=== PATIENT | male | born 1955 | race Caucasian/White ===

== ENCOUNTER 2017-11-04 16:35 | Inpatient (IN) ==
[2017-11-04] MEDS ORDERED: Morphine Inj 4 MG/ML Vial ONE (17:35)
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
[2017-11-04] MEDS ORDERED: Morphine Inj 4 MG/ML Vial IV.PUSH PRN (18:10)
[2017-11-04] MEDS ORDERED: Ketorolac Inj 30 MG/ML (IVP) Vial IV.PUSH PRN (18:10)
[2017-11-04] MEDS: Sod Chloride 0.9% Inj 1,000 ML IV.CONT SCH (18:32)
--- NOTE | 2017-11-04 18:32 | XR ---
EXAM DATE: 11/04/2017 6:11 PM EDT AGE/SEX: 62 years / Male INDICATIONS: Status post left sided chest tube placement. CLINICAL DATA: This is the patient's initial encounter. Patient reports that signs and symptoms have been present for 1 day and indicates a pain score of Nonresponsive. MEDICAL/SURGICAL HISTORY: Non-responsive. Non-responsive. COMPARISON: No prior exams available for comparison. FINDINGS: There are patchy infiltrates in the left lower lung with loss of delineation of portions of the left hemidiaphragm. There is an indwelling chest catheter with the pigtail tip projected over the costophr enic angle. The right lung is clear. The heart is normal in size. No evidence of pneumothorax. CONCLUSION: 1. Left chest catheter tip projects at the costophrenic angle. 2. Patchy nonconsolidative infiltrates in the left lower lung. Electronically signed by: Chandan Bush MD 11/04/2017 6:31 PM EDT
[2017-11-04] MEDS: Pantoprazole Inj 40 MG Vial IV.PUSH SCH (20:54)
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
[2017-11-04] MEDS ORDERED: Docusate Sodium 100 MG Capsule PO SCH (21:00)
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
[2017-11-05] MEDS ORDERED: Chlorhexidine Gluconate 2% 1 Pack (2 Cloths) TOPICAL PRN (04:00)
--- NOTE | 2017-11-05 04:13 | XR ---
EXAM DATE: 11/05/2017 3:26 AM EDT AGE/SEX: 62 years / Male INDICATIONS: Shortness of breath. CLINICAL DATA: This is the patient's subsequent encounter. Patient reports that signs and symptoms h ave been present for 2 days and indicates a pain score of Nonresponsive. MEDICAL/SURGICAL HISTORY: Non-responsive. Non-responsive. COMPARISON: [facility] [place], CHEST 1V SINGLE AP, 11/04/2017. . FINDINGS: A single AP view of the chest demonstrates a small caliber thoracostomy tube on the left. This is coi led within the bases. Patchy consolidation remains unchanged within the left base. Remaining lungs ar e clear. No effusions. No pneumothorax. The cardiomediastinal contours are unremarkable. Osseous str uctures are intact. CONCLUSION: Unchanged parenchymal consolidation within the left base either relating to atelectasis or infiltr ate. Electronically signed by: Chandan Hook MD 11/05/2017 4:12 AM EDT
[2017-11-05] MEDS: Chlorhexidine Gluconate 2% 1 Pack (2 Cloths) TOPICAL SCH (05:23)
[2017-11-05] MEDS: Sod Chloride 0.9% Inj 1,000 ML IV.CONT SCH (05:24)
[2017-11-05] MEDS: Methocarbamol 500 MG Tablet PO SCH ×3 (06:30→21:31)
[2017-11-05 10:13] LABS: Baso # (Auto) 0.1 th/mm3 (0.0-0.2); Baso % (Auto) 0.7 % (0.0-2.0); Eos # (Auto) 0.2 th/mm3 (0.0-0.4); Eos % (Auto) 2.3 % (0.0-4.0); Hematocrit 42.6 % (39.0-51.0); Hemoglobin 14.2 gm/dL (13.0-17.0); Lymph # (Auto) 1.9 th/mm3 (1.0-4.8); Lymph % (Auto) 20.6 % (9.0-44.0); Mean Corpuscular HGB Conc 33.3 % (32.0-36.0); Mean Corpuscular Hemoglobin 29.1 pg (27.0-34.0); Mean Corpuscular Volume 87.2 fL (80.0-100.0); Mean Platelet Volume 7.4 fL (7.0-11.0); Mono # (Auto) 0.8 th/mm3 (0.0-0.9); Mono % (Auto) 9.4 % (0.0-8.0); Platelet Count 208 th/mm3 (150-450); Red Blood Count 4.88 mil/mm3 (4.50-5.90); Red Cell Distribution Width 13.8 % (11.6-17.2)
[2017-11-05 10:40] LABS: Anion Gap 7 meq/L (5-15); Blood Urea Nitrogen 16 mg/dL (7-18); Calcium 8.4 mg/dL (8.5-10.1); Carbon Dioxide 28.6 meq/L (21.0-32.0); Chloride 107 meq/L (98-107); Glomerular Filtration Rate Greater Than 89 mL/min (>89); Glucose,Random 77 mg/dL (74-106); Potassium 3.8 meq/L (3.5-5.1); Sodium 143 meq/L (136-145)
[2017-11-05] MEDS: Senna/Docusate Sodium 8.6/50 MG Tablet PO SCH ×2 (11:19→21:31)
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
[2017-11-05] MEDS: Pantoprazole Inj 40 MG Vial IV.PUSH SCH (21:31)
[2017-11-06] MEDS: Methocarbamol 500 MG Tablet PO SCH ×3 (06:05→21:40)
--- NOTE | 2017-11-06 07:03 | XR ---
EXAM DATE: 11/06/2017 6:54 AM EDT AGE/SEX: 62 years / Male INDICATIONS: Left chest and rib pain, evaluate pneumothorax and chest tube CLINICAL DATA: This is the patient's subsequent encounter. Patient reports that signs and symptoms h ave been present for 4 - 6 days and indicates a pain score of 2/10. MEDICAL/SURGICAL HISTORY: . pneumothorax Chest tube, left. COMPARISON: [facility] [place], CHEST 1V SINGLE AP, 11/05/2017. . FINDINGS: A single AP view of the chest demonstrates small caliber left-sided chest tube. Subsegmental basilar airspace disease, left greater than right. Small left apical pneumothorax. CONCLUSION: Left chest tube with small left apical pneumothorax, stable. Minimal basilar airspace disease. Electronically signed by: Elvis Sarah MD 11/06/2017 7:02 AM EDT
[2017-11-06] MEDS: Chlorhexidine Gluconate 2% 1 Pack (2 Cloths) TOPICAL SCH (07:51)
[2017-11-06] MEDS: Ketorolac Inj 30 MG/ML (IVP) Vial IV.PUSH SCH ×3 (09:03→18:39)
[2017-11-06] MEDS: Senna/Docusate Sodium 8.6/50 MG Tablet PO SCH ×2 (09:03→20:00)
[2017-11-06] MEDS: Gabapentin 300 MG Capsule PO SCH ×3 (09:04→17:59)
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
[2017-11-06] MEDS: Pantoprazole Inj 40 MG Vial IV.PUSH SCH (19:56)
[2017-11-07] MEDS: Ketorolac Inj 30 MG/ML (IVP) Vial IV.PUSH SCH ×4 (00:24→18:18)
[2017-11-07 04:58] LABS: Baso % (Auto) 0.7 % (0.0-2.0); Eos # (Auto) 0.2 th/mm3 (0.0-0.4); Eos % (Auto) 2.9 % (0.0-4.0); Hematocrit 43.2 % (39.0-51.0); Hemoglobin 14.5 gm/dL (13.0-17.0); Lymph # (Auto) 1.6 th/mm3 (1.0-4.8); Lymph % (Auto) 24.2 % (9.0-44.0); Mean Corpuscular HGB Conc 33.6 % (32.0-36.0); Mean Corpuscular Hemoglobin 29.2 pg (27.0-34.0); Mean Corpuscular Volume 86.8 fL (80.0-100.0); Mono # (Auto) 0.5 th/mm3 (0.0-0.9); Mono % (Auto) 7.1 % (0.0-8.0); Neut # (Auto) 4.4 th/mm3 (1.8-7.7); Neut % (Auto) 65.1 % (16.0-70.0); Platelet Count 211 th/mm3 (150-450); Red Blood Count 4.98 mil/mm3 (4.50-5.90); Red Cell Distribution Width 13.5 % (11.6-17.2); White Blood Count 6.8 th/mm3 (4.0-11.0)
[2017-11-07 05:11] LABS: Calcium 8.5 mg/dL (8.5-10.1); Potassium 3.8 meq/L (3.5-5.1)
[2017-11-07] MEDS: Chlorhexidine Gluconate 2% 1 Pack (2 Cloths) TOPICAL SCH (05:36)
[2017-11-07] MEDS: Methocarbamol 500 MG Tablet PO SCH ×3 (05:41→23:30)
--- NOTE | 2017-11-07 07:40 | XR ---
EXAM DATE: 11/07/2017 7:34 AM EDT AGE/SEX: 62 years / Male INDICATIONS: Shortness of breath. Evaluate pneumothorax. CLINICAL DATA: This is the patient's subsequent encounter. Patient reports that signs and symptoms h ave been present for 3 days and indicates a pain score of 0/10. MEDICAL/SURGICAL HISTORY: None. . Chest tube. COMPARISON: [facility] [place], CHEST 1V SINGLE AP, 11/06/2017. . FINDINGS: Stable left-sided chest tube in place. Very subtle left apical pneumothorax. Persistent mild airspace disease at the left lung base. Cardiomediastinal contours are stable. Bony thorax is intact. CONCLUSION: 1. Stable left-sided chest tube with subtle apical pneumothorax. 2. Stable mild left lower lung zone airspace disease. Electronically signed by: Corky Lennon MD 11/07/2017 7:39 AM EDT
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
[2017-11-07] MEDS: Gabapentin 300 MG Capsule PO SCH ×3 (09:53→18:18)
[2017-11-07] MEDS: Senna/Docusate Sodium 8.6/50 MG Tablet PO SCH ×2 (09:53→23:30)
[2017-11-07] MEDS ORDERED: Morphine Inj 4 MG/ML Vial IV.PUSH PRN (21:34)
[2017-11-07] MEDS: Pantoprazole Inj 40 MG Vial IV.PUSH SCH (23:29)
[2017-11-08] MEDS: Ketorolac Inj 30 MG/ML (IVP) Vial IV.PUSH SCH ×4 (00:34→18:47)
[2017-11-08] MEDS: Chlorhexidine Gluconate 2% 1 Pack (2 Cloths) TOPICAL SCH (04:24)
--- NOTE | 2017-11-08 05:27 | XR ---
EXAM DATE: 11/08/2017 4:53 AM EDT AGE/SEX: 62 years / Male INDICATIONS: Pneumothorax. Follow up trauma. CLINICAL DATA: This is the patient's subsequent encounter. Patient reports that signs and symptoms h ave been present for 3 days and indicates a pain score of 7/10. MEDICAL/SURGICAL HISTORY: None. None. COMPARISON: [facility] [place], CHEST 1V SINGLE AP, 11/07/2017. . FINDINGS: A single AP view of the chest demonstrates the lungs to be symmetrically aerated without evidence of mass, infiltrate or effusion. [place] loop thoracostomy tube in the left hemithorax is stable in positio n with the tip projecting over the expected location of the left lingula. The cardiomediastinal conto urs are unremarkable. Osseous structures are intact. CONCLUSION: 1. Stable position of left [place] loop thoracostomy tube. No pneumothorax 2. Improving aeration in the left lung base with resolving atelectasis. Electronically signed by: Regino Villanueva MD 11/08/2017 5:25 AM EDT
[2017-11-08] MEDS: Methocarbamol 500 MG Tablet PO SCH ×3 (06:29→21:51)
[2017-11-08] MEDS: Senna/Docusate Sodium 8.6/50 MG Tablet PO SCH ×2 (09:20→21:52)
[2017-11-08] MEDS: Gabapentin 300 MG Capsule PO SCH ×3 (09:20→21:51)
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
[2017-11-08] MEDS: Enoxaparin Inj 40 MG/0.4 ML Syringe SQ SCH (11:52)
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
[2017-11-08] MEDS: Pantoprazole Inj 40 MG Vial IV.PUSH SCH (21:51)
[2017-11-09] MEDS: Ketorolac Inj 30 MG/ML (IVP) Vial IV.PUSH SCH (00:50)
[2017-11-09] MEDS: Chlorhexidine Gluconate 2% 1 Pack (2 Cloths) TOPICAL SCH (05:56)
[2017-11-09] MEDS: Methocarbamol 500 MG Tablet PO SCH ×3 (05:59→22:04)
--- NOTE | 2017-11-09 06:50 | XR ---
EXAM DATE: 11/09/2017 6:43 AM EDT AGE/SEX: 62 years / Male INDICATIONS: Shortness of breath, possible pneumothorax. CLINICAL DATA: This is the patient's subsequent encounter. Patient reports that signs and symptoms h ave been present for 4 - 6 days and indicates a pain score of 8/10. MEDICAL/SURGICAL HISTORY: None. None. COMPARISON: [facility] [place], CHEST 1V SINGLE AP, 11/08/2017. . FINDINGS: A single AP view of the chest demonstrates the lungs to be symmetrically aerated with mild atelectati c changes predominantly in the left base. The cope loop catheter is identified with the tip projectin g just above the left hemidiaphragm. No effusion or pneumothorax. Heart size is normal. Degenerative spurring of the dorsal spine. Osseous structures are otherwise intact. CONCLUSION: 1. Stable position of the cope loop thoracostomy tube in the left chest. No significant effusion or pneumothorax. 2. Mild atelectatic changes above the left hemidiaphragm. Electronically signed by: Regino Villanueva MD 11/09/2017 6:49 AM EDT
[2017-11-09] MEDS: Gabapentin 300 MG Capsule PO SCH ×3 (08:40→17:13)
[2017-11-09] MEDS: Senna/Docusate Sodium 8.6/50 MG Tablet PO SCH ×2 (08:40→22:04)
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
[2017-11-09] MEDS: Enoxaparin Inj 40 MG/0.4 ML Syringe SQ SCH (13:03)
[2017-11-09] MEDS: Pantoprazole Inj 40 MG Vial IV.PUSH SCH (22:04)
[2017-11-10] MEDS: Methocarbamol 500 MG Tablet PO SCH ×2 (05:46→13:19)
--- NOTE | 2017-11-10 07:03 | XR ---
EXAM DATE: 11/10/2017 6:55 AM EDT AGE/SEX: 62 years / Male INDICATIONS: Evaluate left pneumothorax and chest tube. CLINICAL DATA: This is the patient's subsequent encounter. Patient reports that signs and symptoms h ave been present for 4 - 6 days and indicates a pain score of 3/10. MEDICAL/SURGICAL HISTORY: . left pneumothorax Chest tube, left. COMPARISON: [facility] – [place], CHEST 1V SINGLE AP, 11/09/2017. . FINDINGS: Small caliber chest tube again seen on the left at the base. Tiny pneumothorax seen at the apex. Ther e is mild bibasilar atelectasis. CONCLUSION: Tiny left apical pneumothorax. Small caliber chest tube again seen at the base. Mild bibasilar atelectasis. Electronically signed by: Steve Wild MD 11/10/2017 7:02 AM EDT
[2017-11-10] MEDS: Gabapentin 300 MG Capsule PO SCH ×2 (09:47→13:20)
[2017-11-10] MEDS: Senna/Docusate Sodium 8.6/50 MG Tablet PO SCH (09:48)
[2017-11-10] MEDS: Enoxaparin Inj 40 MG/0.4 ML Syringe SQ SCH (13:20)
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
--- NOTE | 2017-11-10 15:27 | XR ---
EXAM DATE: 11/10/2017 3:19 PM EDT AGE/SEX: 62 years / Male INDICATIONS: Evaluate lung status. Recent left chest tube removal. CLINICAL DATA: This is the patient's subsequent encounter. Patient reports that signs and symptoms h ave been present for 4 - 6 days and indicates a pain score of 5/10. MEDICAL/SURGICAL HISTORY: . Left pneumothorax. . Chest tube, left. COMPARISON: [facility] – [place], CHEST 1V SINGLE AP, 11/10/2017. . FINDINGS: The patient's left-sided chest tube has been removed. There is no residual pneumothorax. There is min imal basilar atelectasis on the left. The right lung is clear. The heart and mediastinal contours are within normal limits. CONCLUSION: No pneumothorax identified following chest tube removal. Electronically signed by: Asif Bustos MD 11/10/2017 3:26 PM EDT
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
== END 2017-11-10 17:15 | disposition home or self-care (01) ==
LOC: NEPE 16:35 → NEDH 16:53 → N03 21:37 → N06 11-05 22:30
PROVIDERS: ADMIT Surgery; ATTEND Surgery